=== PATIENT | male | born 1955 | race Caucasian/White ===

== ENCOUNTER 2024-01-30 14:39 | Emergency (ER) | payer MEDICARE, MEDICAID ==
[~2024-01-30] VITALS: Ht 175.3 cm; Wt 65.0 kg
[2024-01-30 15:37] LABS: BASOPHILS # (AUTO) 0.1 X10'3 (0-0.2); BASOPHILS % (AUTO) 1.2 % (0-1); EOSINOPHILS # (AUTO) 0.1 X10'3 (0-0.9); EOSINOPHILS % (AUTO) 0.6 % (0-6); HEMATOCRIT 46.3 % (42.0-52.0); HEMOGLOBIN 15.9 g/dl (14.0-17.9); LYMPHOCYTES # (AUTO) 1.8 X10'3 (1.1-4.8); LYMPHOCYTES % (AUTO) 17.5 % (21-51); MEAN CORPUSCULAR HEMOGLOBIN 29.9 PG (27.0-31.0); MEAN CORPUSCULAR HGB CONC 34.4 g/dL (33.0-36.5); MEAN CORPUSCULAR VOLUME 87.1 FL (78-98); MEAN PLATELET VOLUME 8.2 FL (7.4-10.4); MONOCYTES # (AUTO) 0.8 X10'3 (0-0.9); MONOCYTES % (AUTO) 7.7 % (2-12); NEUTROPHILS # (AUTO) 7.5 X10'3 (1.8-7.7); PLATELET COUNT 227 X10'3 (140-440); RED BLOOD COUNT 5.32 X10'6 (4.70-6.10); RED CELL DISTRIBUTION WIDTH 15.7 % (11.5-14.5); WHITE BLOOD COUNT 10.3 X10'3 (4.5-11.0)
[2024-01-30 15:51] LABS: ALBUMIN 3.3 G/DL (3.4-5.0); ANION GAP 7 (8-16); BLOOD UREA NITROGEN 13 MG/DL (7-18); BUN/CREATININE RATIO 11.4 (10.0-20.0); CALCIUM 9.1 MG/DL (8.5-10.1); CHLORIDE 104 MMOL/L (99-107); CREATININE 1.14 MG/DL (0.60-1.10); GLUCOSE 159 MG/DL (70-104); LIPASE 27 U/L (16-77); SODIUM 142 MMOL/L (135-145); TOTAL CARBON DIOXIDE 30.8 MMOL/L (24-32); eCRCL 59 ML/MIN; eGFR 64 ML/MIN
[2024-01-30] MEDS ORDERED: iohexol 300mg/ml 100ml inj. ONE (16:38)
[2024-01-30] MEDS: potassium bicarbonate/cit acid 25mEq tablet.effervescent PO ONE (16:55)
[2024-01-30] MEDS ORDERED: NO HOME MEDS (17:42)
[2024-01-30] MEDS ORDERED: MAGN296S68 PO (19:05)
[2024-01-30] MEDS ORDERED: DOCU-148 PO (19:05)
[2024-01-30 19:42] VITALS: BP 152/65; PULSE 68; RESP 16; TEMP 97.9; O2SAT 95
== END 2024-01-30 19:45 | disposition home or self-care (01) ==
LOC: ER 14:40
DX: K59.00 Constipation, unspecified (principal); I35.0 Nonrheumatic aortic (valve) stenosis; R10.9 Unspecified abdominal pain
CPT/HCPCS: 36415; 74177; 80048; 83690; 85025; 93922; 99291; J3490; Q9967